=== PATIENT | male | born 1975 | race Caucasian/White ===

== ENCOUNTER 2023-05-19 23:22 | Emergency (ER) | payer SELFPAY ==
[2023-05-19 23:24] VITALS: BP 140/95; PULSE 109; RESP 18; TEMP 37.7; O2SAT 98; BMI 24.4
--- NOTE | 2023-05-19 23:40 | XR_ITS ---
The [address] [address] Patient Name: GAIL KOCH MRN: [id number] date: 1975 Sex: M Assigned Patient Location: ED.MAIN Current Patient Location: ER Accession/Order Number: [id number] Exam Date: 05/19/2023 23:59 Report Date: 05/20/2023 00:12 At the request of: MARCELINA TOMAS Procedure: XR shoulder LT min 2V EXAM: XR shoulder LT min 2V HISTORY: pain COMPARISON: None. TECHNIQUE: 3 views of the left shoulder were obtained. FINDINGS: No acute fracture or dislocation is seen. The left humeral head is well-seated on the glenoid. The acromioclavicular and coracoclavicular distances are preserved. The imaged lungs are clear. Calcific densities are seen about the left glenohumeral joint. XR/XR shoulder LT min 2V IMPRESSION: 1. Calcific densities about the left glenohumeral joint likely represent calcific tendinitis which can be painful. Electronically authenticated by: Dallas PARDO Date: 05/20/2023 00:12
[2023-05-20 00:25] LABS: Basophils Absolute Auto 0.1 10^3/uL (0.0-0.1); Basophils Percent Auto 0.8 % (0.2-2.0); Eosinophils Absolute Auto 0.2 10^3/uL (0.0-0.7); Eosinophils Percent Auto 1.8 % (0.9-7.0); Hematocrit 44.5 % (42.0-54.0); Hemoglobin 15.5 g/dL (14.0-18.0); Immature Granulocytes Abs Auto 0.02 10^3/uL (0.00-0.03); Immature Granulocytes Pct Auto 0.2 % (0.0-0.5); Lymphocytes Absolute Auto 2.3 10^3/uL (1.2-3.8); Lymphocytes Percent Auto 23.2 % (20.5-60.0); Mean Corpuscular HGB Conc 34.8 g/dL (29.9-35.2); Mean Corpuscular Hemoglobin 35.1 pg (25.9-34.0); Mean Corpuscular Volume 100.9 fL (80.0-94.0); Mean Platelet Volume 9.6 fL (9.5-13.5); Monocytes Percent Auto 10.5 % (1.7-12.0); Neutrophils Absolute Auto 6.2 10^3/uL (1.4-6.5); Neutrophils Percent Auto 63.5 % (43.0-75.0); Platelet Count 280 10^3/uL (150-450); Red Blood Count 4.41 10^6/uL (4.70-6.10); Red Cell Distribution Width 13.5 % (11.0-15.0); White Blood Count 9.8 10^3/uL (4.0-11.0)
[2023-05-20] MEDS: METHYLPREDNISOLONE SOD SUCC PF 125 MG/2 ML VIAL IM (00:35)
[2023-05-20] MEDS: KETOROLAC TROMETHAMINE 60 MG/2 ML VIAL IM (00:35)
[2023-05-20 00:36] LABS: Anion Gap 17.5; BUN Creatinine Ratio 10.5; Calcium 9.1 mg/dL (8.5-10.1); Carbon Dioxide 23.2 mmol/L (21.0-32.0); Chloride 102 mmol/L (98-107); Estimated GFR (African America >60 (>=60); Estimated GFR (Non-African Ame >60 (>=60); Glucose 109 mg/dL (74-106); Potassium 3.7 mmol/L (3.5-5.1); Sodium 139 mmol/L (136-145)
--- NOTE | 2023-05-20 00:48 | ED.UPPEXIN1 ---
HPI - Extremity Injury (Upper) General Chief Complaint: Extremity Injury, Upper Stated Complaint: LT SHOULDER/ARM PAIN Time Seen by Provider: 05/19/23 23:26 Source: patient Mode of arrival: walk-in History of Present Illness HPI narrative: presents to the ER complaining of left shoulder pain. not able to recall any injury. Ongoing for 4 days. Pain extends from his shoulder down his arm. no weakness or numbness. No fever Related Data Allergies Allergy/AdvReac Type Severity Reaction Status Date / Time No Known Drug Allergies Allergy Verified 05/19/23 23:28 Review of Systems ROS Status of ROS 10 or more systems reviewed and unremarkable except as noted in history and below PFS PFS Social History Smoking status: Current every day smoker Exam Constitutional Vital Signs, click to edit/add: Last Vital Signs Temp 99.8 F 05/19/23 23:24 Pulse 109 H 05/19/23 23:24 Resp 18 05/19/23 23:24 BP 140/95 H 05/19/23 23:24 Pulse Ox 98 05/19/23 23:24 O2 Del Method Room Air 05/19/23 23:24 Common normals: no apparent distress, average body habitus, oriented x3, no limitations, healthy appearing, alert and well nourished Eye Common normals: EOMs intact bilaterally and conjunctivae normal Respiratory Common normals: normal respiratory effort, no retractions and no use of accessory muscles Cardio Common normals: regular rate, regular rhythm, S1 normal heart sound and S2 normal heart sound Extremity Other: focal tenderness at the left glenoid humeral joint. Pain with ROm of the shoulder. No deformity Neuro Common normals: oriented x3, CN's II-XII intact bilaterally, no focal motor deficits and no sensory deficits noted Psych Appearance: grossly normal Course Vital Signs Vital signs: Vital Signs Temperature 99.8 F 05/19/23 23:24 Pulse Rate 109 H 05/19/23 23:24 Respiratory Rate 18 05/19/23 23:24 Blood Pressure 140/95 H 05/19/23 23:24 Pulse Oximetry 98 05/19/23 23:24 Oxygen Delivery Method Room Air 05/19/23 23:24 Temperature 99.8 F 05/19/23 23:24 Pulse Rate 109 H 05/19/23 23:24 Respiratory Rate 18 05/19/23 23:24 Blood Pressure 140/95 H 05/19/23 23:24 Pulse Oximetry 98 05/19/23 23:24 Oxygen Delivery Method Room Air 05/19/23 23:24 MDM - Extremity Injury (Upper) MDM Narrative Medical decision making narrative: presents with left shoulder pain without injury. xray confirms calcific tendonitis. Patient treated with solumedrol and toradol. Discharged with a prescription for prednisone and referred to orthopedics Lab Data Labs: Lab Results 05/20/23 Range/Units 00:08 WBC 9.8 (4.0-11.0) 10^3/uL RBC 4.41 L (4.70-6.10) 10^6/uL Hgb 15.5 (14.0-18.0) g/dL Hct 44.5 (42.0-54.0) % MCV 100.9 H (80.0-94.0) fL MCH 35.1 H (25.9-34.0) pg MCHC 34.8 (29.9-35.2) g/dL RDW 13.5 (11.0-15.0) % Plt Count 280 (150-450) 10^3/uL MPV 9.6 (9.5-13.5) fL Neut % (Auto) 63.5 (43.0-75.0) % Lymph % (Auto) 23.2 (20.5-60.0) % [place] % (Auto) 10.5 (1.7-12.0) % Eos % (Auto) 1.8 (0.9-7.0) % Baso % (Auto) 0.8 (0.2-2.0) % Neut # (Auto) 6.2 (1.4-6.5) 10^3/uL Lymph # (Auto) 2.3 (1.2-3.8) 10^3/uL [place] # (Auto) 1.0 H (0.3-0.8) 10^3/uL Eos # (Auto) 0.2 (0.0-0.7) 10^3/uL Baso # (Auto) 0.1 (0.0-0.1) 10^3/uL Abs Immat Gran (auto) 0.02 (0.00-0.03) 10^3/uL Imm/Tot Granulo (auto) 0.2 (0.0-0.5) % Sodium 139 (136-145) mmol/L Potassium 3.7 (3.5-5.1) mmol/L Chloride 102 (98-107) mmol/L Carbon Dioxide 23.2 (21.0-32.0) mmol/L Anion Gap 17.5 BUN 9.0 (7.0-18.0) mg/dL Creatinine 0.86 (0.70-1.30) mg/dL Est GFR ( Amer) >60 (>=60) Est GFR (Non-Af Amer) >60 (>=60) BUN/Creatinine Ratio 10.5 Glucose 109 H (74-106) mg/dL Calcium 9.1 (8.5-10.1) mg/dL Discharge Plan Discharge Chief Complaint: Extremity Injury, Upper Clinical Impression: Calcific tendonitis of left shoulder Patient Disposition: Home, Self-Care Instructions: Calcific Tendinitis (ED) Additional Instructions: follow up with Dr Sy orthopedics Stand Alone Forms: Portal Instructions Referrals: Physician,Non-Staff, MD [Primary Care Provider] - 1 week
== END 2023-05-20 01:14 | disposition home or self-care (01) ==
PROVIDERS: Emergency Provider Internal Medicine
DX: M75.32 Calcific tendinitis of left shoulder (principal); F17.210 Nicotine dependence, cigarettes, uncomplicated
CPT/HCPCS: 36415; 73030; 80048; 85025; 96372; 99284; J2930

== ENCOUNTER 2024-03-28 09:29 | Emergency (ER) | payer SELFPAY ==
[2024-03-28 09:33] VITALS: BP 185/114; PULSE 82; TEMP 37.3; O2SAT 100; BMI 23.7
--- NOTE | 2024-03-28 09:46 | XR_ITS ---
[address] [address] Patient Name: GAIL KOCH MRN: [id number] date: 1975 Sex: M Assigned Patient Location: ER Current Patient Location: ED.MAIN Accession/Order Number: [id number] Exam Date: 03/28/2024 09:55 Report Date: 03/28/2024 10:47 At the request of: JESUS ASKEW Procedure: XR femur LT 2V EXAM: XR femur LT 2V HISTORY: trauma COMPARISON: None. FINDINGS/IMPRESSION: 1. No acute fracture or dislocation. 2. Normal alignment of the left hip joint. 3. Normal alignment of the left knee joint. Electronically authenticated by: ROSE DANIELSON Date: 03/28/2024 10:47
--- NOTE | 2024-03-28 09:47 | ED.LOWEXI1 ---
HPI HPI - Extremity Injury (Lower) General Chief Complaint: Extremity Injury, Lower Stated Complaint: LE PAIN Time Seen by Provider: 03/28/24 09:36 Source: patient Mode of arrival: walk-in Limitations: no limitations History of Present Illness HPI Narrative: The patient is coming to us with an initial injury that happened in January, he was playing with his son when he had his knee to his left thigh. The patient left eye started getting swollen and it was ecchymotic for a while but after a while there was a fluid collection in that area that according to the patient stayed fixed. Until almost 4 days ago on Thursday when he started to be red and he is associated with some chills The patient denies any nausea vomiting or any other concerns he also denies any change in appetite he denies any other trauma The patient is able to ambulate with no difficulty or limp but he mentions sometimes that the pain gets worse whenever he left his leg Related Data Home Medications ?Medication ?Instructions ?Recorded ?Confirmed No Known Home Medications 03/28/24 03/28/24 Allergies Allergy/AdvReac Type Severity Reaction Status Date / Time No Known Drug Allergies Allergy Verified 05/19/23 23:28 Opioid HPI Opioid Management Most Recent Pain and Opioid Data: Last Pain Scale 1 03/28/24 10:05 Last MAR Pain Assessment 03/28/24 10:05 Review of Systems ROS Status of ROS 10 or more systems reviewed and unremarkable except as noted in history and below [facility] Social History Smoking status: Current every day smoker Exam Narrative Exam Narrative: Nurses notes and vital signs reviewed and patient is not hypoxic. General: Well-appearing and in no apparent distress. Skin: Warm, dry, no pallor noted. No rash. Head: Normocephalic, atraumatic. Neck: Supple, non-tender. Eye: Pupils are equal, round and EOMI. No scleral icterus. Ears, Nose, Mouth, and Throat: TM are clear, no nasal mucosal hypertrophy. Oral mucosa is moist, no posterior oropharynx erythema, uvula is mid-line Cardiovascular: Regular Rate and Rhythm without murmur, gallop or rub. Respiratory: No accessory muscle use or respiratory distress. Lungs are clear to auscultation, no wheezing, rales or rhonchi Chest Wall: no tenderness Back: No midline thoracic or lumbar vertebral tenderness. No CVA tenderness Musculoskeletal: normal ROM, no calf or popliteal tenderness, on the medial aspect of the left leg the patient have swelling toward the lower half of the thigh mostly medially it is 12 x 13 cm with skin induration no fluid collection, no abscess no fluctuation, warm and tender Patient have a good femoral pulse as well as good anterior tibial pulse no vascular injury detected GI: Abdomen is soft, non-distended. Normal bowel sounds. No masses appreciated. No tenderness to palpation. No rebound, guarding, or rigidity noted. Neurological: A&O x4. No cranial nerve dysfunction observed. No truncal ataxia. Moves all extremities. Sensation intact. Psychiatric: Cooperative and interactive. Normal mood and affect. Constitutional Vital Signs, click to edit/add: Last Vital Signs Temp 99.2 F 03/28/24 09:33 Pulse 82 03/28/24 09:33 Resp 18 03/28/24 09:33 BP 185/114 H 03/28/24 09:33 Pulse Ox 100 03/28/24 09:33 O2 Del Method Room Air 03/28/24 09:33 Course Vital Signs Vital signs: Vital Signs Temperature 99.2 F 03/28/24 09:33 Pulse Rate 82 03/28/24 09:33 Respiratory Rate 18 03/28/24 09:33 Blood Pressure 185/114 H 03/28/24 09:33 Pulse Oximetry 100 03/28/24 09:33 Oxygen Delivery Method Room Air 03/28/24 09:33 Temperature 99.2 F 03/28/24 09:33 Pulse Rate 82 03/28/24 09:33 Respiratory Rate 18 03/28/24 09:33 Blood Pressure 185/114 H 03/28/24 09:33 Pulse Oximetry 100 03/28/24 09:33 Oxygen Delivery Method Room Air 03/28/24 09:33 MDM - Extremity Injury (Lower) MDM Narrative Medical decision making narrative: The patient CBC and chemistry showed no acute pathology D-dimer is not elevated X-ray of the left femur showed no acute pathology The patient will be covered with Keflex for possible underlying mild cellulitis in addition to the fact that he will be started anti-inflammatory with Chase wrap The patient was referred to orthopedic as outpatient The patient is to follow up with primary care physician in next 2-3 days or to return to the emergency department should any of the signs or symptoms worsen or new symptoms develop. The patient agrees with the following Diagnosis and Treatment plan and the patient will be discharged home. Discharge Plan Discharge Stand Alone Forms: Work/School Release, Portal Instructions Chief Complaint: Extremity Injury, Lower Clinical Impression: Cellulitis Contusion Qualifiers: Encounter type: initial encounter Contusion area: lower leg Laterality: right Qualified Code(s): S80.11XA - Contusion of right lower leg, initial encounter Patient Disposition: Home, Self-Care Time of Disposition Decision: 10:32 Prescriptions / Home Meds: No Action No Known Home Medications Print Language: Tajik Instructions: Cellulitis (ED), Contusion in Adults (ED) Referrals: Physician,Non-Staff, [Primary Care Provider] - 1 week Nikko Sy MD [Physician] - 1 week
[2024-03-28] MEDS: KETOROLAC TROMETHAMINE 30 MG/ML VIAL 15 MG IVP (10:05)
[2024-03-28 10:12] LABS: Basophils Absolute Auto 0.1 10^3/uL (0.0-0.1); Basophils Percent Auto 0.6 % (0.2-2.0); Eosinophils Percent Auto 0.4 % (0.9-7.0); Hematocrit 41.8 % (42.0-54.0); Hemoglobin 14.9 g/dL (14.0-18.0); Immature Granulocytes Abs Auto 0.04 10^3/uL (0.00-0.03); Immature Granulocytes Pct Auto 0.4 % (0.0-0.5); Lymphocytes Absolute Auto 1.7 10^3/uL (1.2-3.8); Lymphocytes Percent Auto 15.6 % (20.5-60.0); Mean Corpuscular HGB Conc 35.6 g/dL (29.9-35.2); Mean Corpuscular Hemoglobin 36.3 pg (25.9-34.0); Mean Platelet Volume 9.5 fL (9.5-13.5); Monocytes Absolute Auto 1.4 10^3/uL (0.3-0.8); Monocytes Percent Auto 13.1 % (1.7-12.0); Neutrophils Absolute Auto 7.4 10^3/uL (1.4-6.5); Neutrophils Percent Auto 69.9 % (43.0-75.0); Platelet Count 251 10^3/uL (150-450); Red Cell Distribution Width 12.4 % (11.0-15.0); White Blood Count 10.6 10^3/uL (4.0-11.0)
[2024-03-28 10:15] VITALS: BP 131/89; PULSE 83; O2SAT 100
[2024-03-28 10:19] LABS: D Dimer 0.37 mg/L FEU (<=0.59)
[2024-03-28 10:21] LABS: Alanine Aminotransferase 20 U/L (16-63); Albumin Level 3.3 g/dL (3.4-5.0); Alkaline Phosphatase 90 U/L (46-116); Aspartate Amino Transferase 14 U/L (15-37); BUN Creatinine Ratio 4.4; Calcium 8.9 mg/dL (8.5-10.1); Chloride 103 mmol/L (98-107); Estimated GFR (African America >60 (>=60); Estimated GFR (Non-African Ame >60 (>=60); Globulin 3.3 g/dL; Glucose 103 mg/dL (74-106); Potassium 3.7 mmol/L (3.5-5.1); Sodium 140 mmol/L (136-145); Total Protein 6.6 g/dL (6.4-8.2)
[2024-03-28 10:32] LABS: Anion Gap 15.4; Carbon Dioxide 25.3 mmol/L (21.0-32.0)
== END 2024-03-28 11:10 | disposition home or self-care (01) ==
PROVIDERS: Emergency Provider Emergency Medicine
DX: S80.11XA Contusion of right lower leg, initial encounter (principal); L03.116 Cellulitis of left lower limb; X58.XXXA Exposure to other specified factors, initial encounter; F17.200 Nicotine dependence, unspecified, uncomplicated
CPT/HCPCS: 36415; 73552; 80053; 85025; 85378; 96374; 99284; J1885

== ENCOUNTER 2024-12-23 06:24 | Emergency (ER) | payer SELFPAY ==
[2024-12-23 06:27] VITALS: BP 166/113; PULSE 98; O2SAT 99; BMI 26.4
[2024-12-23 06:30] VITALS: BP 174/121; PULSE 97; O2SAT 99
[2024-12-23 06:32] VITALS: BP 166/113; PULSE 96
[2024-12-23 06:43] VITALS: BP 140/111; PULSE 98
--- NOTE | 2024-12-23 06:50 | ECG_ITS ---
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 Measurements Intervals [place] Rate: 100 P: 63 AR: 184 QRS: 81 QRSD: 94 T: 55 QT: 372 QTc: 429 Interpretive Statements 1120 Sinus tachycardia 3433 Septal myocardial infarction, probably old 7300 Indeterminate axis 9150 abnormal ECG No previous ECG available for comparison Electronically Signed On 12-23-2024 17:33:42 EDT by KYE MARION M.D.
--- NOTE | 2024-12-23 06:52 | ED_ITS ---
HPI - Chest Pain General Chief Complaint: Chest Pain Stated Complaint: chest pains Time Seen by Provider: 12/23/24 06:46 Source: patient Mode of arrival: Wheelchair Limitations: no limitations History of Present Illness HPI narrative: The patient is a 49-year-old male who presents to the emergency department with chest pain. The patient does not have any known past medical history because he does not have a primary medical physician and does not go for routine physicals. Patient's cardiac risk factors include at the very least that he smokes and has a positive family medical history. Chest pain began around 5 AM this morning. He states that it abruptly got worse throughout the morning. He took 381 mg aspirins. The patient stated that the pain is located in his central chest radiates up into his collarbones up into his neck and jaw. Pain is about a 6-7 out of 10. It is dull and achy like in sensation. Nothing in particular makes it worse. Nothing makes it better. Recently when he has been walking or exerting himself he does not have any chest pain or shortness of breath. He denies any shortness of breath but does state when he takes a deep breath that it causes the chest pain to be worse. He does not have any nausea, he does not have any vomiting, no diaphoresis. Feels better to sit up on the side of the bed or stand. Nothing identifiable has made it worse. Patient denies any heavy lifting, moving, twisting or repetitive movements. Patient denies any long car ride or airplane travel. No estrogen supplementation. No recent surgeries. No prolonged immobility. No trauma to the legs. No recent COVID diagnosis. No personal or family history of DVT or PE. No current cough, cold, flulike symptoms. No sore throat. No purulent production in the chest. Related Data Home Medications ?Medication ?Instructions ?Recorded ?Confirmed No Known Home Medications 12/23/2411/26 Allergies Allergy/AdvReac Type Severity Reaction Status Date / Time No Known Drug Allergies Allergy Verified 12/23/24 06:33 Review of Systems ROS Narrative 10 Systems were reviewed, and unless not ed in the HPI, all other systems are reviewed, unremarkable, or noncontributory. PFSH PFS Social History Smoking status: Current every day smoker Little interest or pleasure in doing things: not at all Feeling down, depressed, or hopeless: not at all Exam Narrative Exam Narrative: Prior to examining the patient, I have washed with hospital approved and provided Antiseptic Hand Environmental Health Safety Engineer and have also applied gloves.? Prior to touching the patient, I asked for consent to examine the patient.? General: Alert and oriented, well nourished, moderate distress. Eye: PERRL, EOMI, normal conjunctiva. HENT: Normocephalic, normal hearing, moist oral mucosa, no scleral icterus, no sinus tenderness. Neck: Supple, non-tender, no carotid bruits, no JVD, no lymphadenopathy. Lungs: Clear to auscultation and percussion, non-labored respiration. No rhonchi, rales, wheezing Heart: Normal rate, regular rhythm, no murmur, gallop or edema. Abdomen: Soft, non-tender, non-distended, normal bowel sounds, no masses. Musculoskeletal: Normal range of motion and strength, no tenderness or swelling. Nonreproducible chest pain Skin: Skin is warm, dry and pink, no rashes or lesions. Multiple tattoos Neurologic: Awake, alert, and oriented X3, CN II-XII intact. Psychiatric: Cooperative, appropriate mood and affect.? Following the conclusion of the examination, I have washed my hands thoroughly after removing examination gloves. Constitutional Vital Signs, click to edit/add: Last Vital Signs Pulse 98 H 12/23/24 06:27 Resp 20 12/23/24 06:27 BP 166/113 H 12/23/24 06:27 Pulse Ox 99 12/23/24 06:27 O2 Del Method Room Air 12/23/24 06:27 Course Course Hospital Course: Patient was seen and evaluated in the emergency department. Patient already took three 81 mg aspirins at home we will give him an additional 1. Is very difficult to tell what this patient's etiology of his chest pain is. First of all, the patient does not have any really known medical history but does present hypertensive in the emergency department which may in fact be at his baseline. Given that the patient does not have any known history of believe that it is important to rule out any thing cardiac. Patient will be placed on a monitor. He had an EKG. He is getting get a chest x-ray. I will do CBC, CMP, magnesium, troponin, PTT. For analgesic management at this time since it does seem to be worse when he takes a deep breath we will provide him with methylprednisolone 125 mg IV push and Toradol 15 mg IV push. The patient will be signed out to my colleague at 7 AM. The patient will need follow-up with laboratories, imaging, and response to analgesia. He will definitely need follow-up at the very least and referral to a primary medical physician for risk factor stratification. Vital Signs Vital signs: Vital Signs Pulse Rate 98 H 12/23/24 06:27 Respiratory Rate 20 12/23/24 06:27 Blood Pressure 166/113 H 12/23/24 06:27 Pulse Oximetry 99 12/23/24 06:27 Oxygen Delivery Method Room Air 12/23/24 06:27 Pulse Rate 98 H 12/23/24 06:27 Respiratory Rate 20 12/23/24 06:27 Blood Pressure 166/113 H 12/23/24 06:27 Pulse Oximetry 99 12/23/24 06:27 Oxygen Delivery Method Room Air 12/23/24 06:27 Discharge Plan Discharge Patient Disposition: Still a Patient
[2024-12-23 06:58] LABS: Basophils Absolute Auto 0.1 10^3/uL (0.0-0.1); Basophils Percent Auto 0.8 % (0.2-2.0); Eosinophils Absolute Auto 0.3 10^3/uL (0.0-0.7); Eosinophils Percent Auto 2.1 % (0.9-7.0); Hematocrit 41.7 % (42.0-54.0); Hemoglobin 15.1 g/dL (14.0-18.0); Immature Granulocytes Abs Auto 0.04 10^3/uL (0.00-0.03); Immature Granulocytes Pct Auto 0.3 % (0.0-0.5); Lymphocytes Absolute Auto 2.9 10^3/uL (1.2-3.8); Lymphocytes Percent Auto 22.9 % (20.5-60.0); Mean Corpuscular HGB Conc 36.2 g/dL (29.9-35.2); Mean Corpuscular Hemoglobin 36.3 pg (25.9-34.0); Mean Corpuscular Volume 100.2 fL (80.0-94.0); Mean Platelet Volume 9.6 fL (9.5-13.5); Monocytes Percent Auto 7.7 % (1.7-12.0); Neutrophils Absolute Auto 8.3 10^3/uL (1.4-6.5); Neutrophils Percent Auto 66.2 % (43.0-75.0); Platelet Count 294 10^3/uL (150-450); Red Blood Count 4.16 10^6/uL (4.70-6.10); Red Cell Distribution Width 11.9 % (11.0-15.0); White Blood Count 12.5 10^3/uL (4.0-11.0)
[2024-12-23 07:00] VITALS: BP 137/99; PULSE 97
[2024-12-23 07:12] VITALS: BP 142/98; PULSE 97; O2SAT 100
[2024-12-23] MEDS: KETOROLAC TROMETHAMINE 60 MG/2 ML VIAL 15 MG IVP (07:12)
[2024-12-23] MEDS: METHYLPREDNISOLONE SOD SUCC PF 125 MG/2 ML VIAL IVP (07:12)
[2024-12-23] MEDS: ASPIRIN 81 MG TAB.CHEW PO (07:12)
[2024-12-23 07:13] LABS: Partial Thromboplastin Time 27.3 sec (22.3-36.2)
[2024-12-23 07:17] LABS: Alanine Aminotransferase 19 U/L (16-63); Albumin Globulin Ratio 1.1; Albumin Level 3.6 g/dL (3.4-5.0); Alkaline Phosphatase 103 U/L (46-116); Anion Gap 14.9; Aspartate Amino Transferase 16 U/L (15-37); BUN Creatinine Ratio 6.2; Bilirubin Total 0.3 mg/dL (0.2-1.0); Calcium 8.9 mg/dL (8.5-10.1); Carbon Dioxide 27.7 mmol/L (21.0-32.0); Chloride 103 mmol/L (98-107); Estimated GFR (African America >60 (>=60 mL/min/1.73m^2); Estimated GFR (Non-African Ame >60 (>=60 mL/min/1.73m^2); Globulin 3.3 g/dL; Glucose 104 mg/dL (74-106); Magnesium 1.7 mg/dL (1.8-2.4); Potassium 3.6 mmol/L (3.5-5.1); Sodium 142 mmol/L (136-145); Total Protein 6.9 g/dL (6.4-8.2)
[2024-12-23 07:24] LABS: Troponin I High Sensitivity <5.0 pg/mL (4.0-76.1)
[2024-12-23] MEDS: MAGNESIUM OXIDE 400 MG TABLET 800 MG PO (07:51)
[2024-12-23] MEDS: lidocaine HCL 15 ML, MAG HYDROX/ALUMINUM HYD/SIMETH 30 ML, HYOSCYAMINE SULFATE 0.25 MG PO (08:09)
[2024-12-23] MEDS: FAMOTIDINE/PF 20 MG/2 ML VIAL IV (08:09)
[2024-12-23 08:11] LABS: Troponin I High Sensitivity 4.1 pg/mL (4.0-76.1)
== END 2024-12-23 09:02 | disposition home or self-care (01) ==
PROVIDERS: Emergency Medicine; Emergency Provider Emergency Medicine
DX: R07.89 Other chest pain (principal); K29.70 Gastritis, unspecified, without bleeding; R68.84 Jaw pain
CPT/HCPCS: 36415; 71046; 80053; 83735; 84484; 85025; 85730; 93005; 96374; 96375; 99285; J1885; J2919; J3490